=== PATIENT | female | born 1965 | race Caucasian/White ===

== ENCOUNTER → 2016-03-26 | Outpatient (CLI) | payer OTHER ==
--- NOTE | 2016-03-26 14:24 | US ---
EXAM DESCRIPTION: Pelvic ultrasound. CLINICAL HISTORY: Pelvic pain. COMPARISON: None. TECHNIQUE: Real time transabdominal and transvaginal sonography was performed by an dairy manufacturing technologist. C[employer] static images were submitted for review. FINDINGS: The uterus measures 9.7 x 6.9 x 6.3 cm. The endometrial stripe measures 11 mm in diameter. Two uterine fibroids are noted. The largest measures 3.0 x 3.8 x 2.8 cm. The right ovary measures 4.3 x 3.2 x 2.7 cm. The left ovary measures 2.8 x 1.4 x 2.0 cm. Bilateral ovarian cysts are noted. The right ovarian cyst demonstrates characteristics the what is likely a hemorrhagic cyst. There is a simple 2.5 cm left ovarian cyst. IMPRESSION: Multiple uterine fibroids noted. The largest measures roughly 3 cm in diameter. The endometrial stripe measures 11 mm in diameter. If patient is postmenopausal then this is abnormal and in endometrial biopsy should be considered. If patient is premenopausal then is a normal finding. Bilateral ovarian cysts. Recommend six-month followup to document stability or resolution of these likely right hemorrhagic 2 cm ovarian cyst. Electronically signed by: Avila Singh MD 03/26/2016 14:23
== END ==
LOC: RAD 12:42
PROVIDERS: ATTEND Nurse Practitioner Family
DX: R10.2 Pelvic and perineal pain (principal); N85.7 Hematometra